=== PATIENT | female | born 1940 | race Caucasian/White ===

== ENCOUNTER 2019-01-26 19:39 | Emergency (ER) | payer MEDICARE, BC ==
[2019-01-26 20:13] LABS: ANION GAP 17.6; CHLORIDE,CL 100 mmol/L (101-111); SODIUM,NA 135 mmol/L (135-145)
--- NOTE | 2019-01-26 20:33 | EDM.PDOC ---
ED HPI GENERAL MEDICAL PROBLEM - General Chief Complaint: Trauma Stated Complaint: AMBULANCE Time Seen by Provider: 01/26/19 19:39 Source of Information: Reports: Patient, EMS, EMS Notes Reviewed, RN, RN Notes Reviewed History Limitations: Reports: No Limitations - History of Present Illness INITIAL COMMENTS - FREE TEXT/NARRATIVE: Pt to ER per [facility]. Trauma code called at 1937. GCS on arrival: 15. No Ccollar or spine board present upon arrival. Pt states she was walking and tripped falling on her face. Patient is bleeding from both nostrils upon arrival. Rhino rockets placed in the field by EMS have fallen out upon arrival. Denies LOC. Denies any health problems or taking any medications. Small abrasion on the bridge of her nose. Denies any pain. Onset: Today, Sudden - Related Data Allergies Allergy/AdvReac Type Severity Reaction Status Date / Time No Known Allergies Allergy Verified 05/09/15 06:17 Home Meds: Home Meds . [No Known Home Meds] 05/09/15 [History] Past Medical History - Past Health History Medical/Surgical History: Denies Medical/Surgical History Review of Systems - Review of Systems Review Of Systems: ROS reveals no pertinent complaints other than HPI. ED EXAM, GENERAL - Physical Exam Exam: See Below Exam Limited By: No Limitations General Appearance: Alert, WD/WN, No Apparent Distress Eye Exam: Bilateral Eye: EOMI, Normal Inspection Ears: Normal External Exam, Hearing Grossly Normal Nose: Nasal Tenderness, Nasal Deformity, Nasal Swelling, Nasal Drainage ( bleeding from both nares) Throat/Mouth: Normal Inspection, Normal Lips, Normal Teeth, Normal Gums, Normal Oropharynx, Normal Voice, No Airway Compromise Head: Facial Swelling, Facial Tenderness, Other (bruising beginning under the eyes bilaterally) Neck: Normal Inspection, Supple, Non-Tender, Full Range of Motion Respiratory/Chest: No Respiratory Distress, Lungs Clear, Normal Breath Sounds, No Accessory Muscle Use, Chest Non-Tender Cardiovascular: Normal Peripheral Pulses, Regular Rate, Rhythm, No Edema, No Gallop, No JVD, No Murmur, No Rub Peripheral Pulses: 2+: Radial (L), Radial (R) GI/Abdominal: Normal Bowel Sounds, Soft, Non-Tender (Female) Exam: Deferred Rectal (Female) Exam: Deferred Back Exam: Normal Inspection, Full Range of Motion Extremities: Normal Inspection, Normal Range of Motion, Non-Tender, Normal Capillary Refill, No Pedal Edema Neurological: Alert, Oriented, CN II-XII Intact, Normal Cognition, Normal Gait, Normal Reflexes, No Motor/Sensory Deficits Psychiatric: Normal Affect, Normal Mood Skin Exam: Ecchymosis (under eyes bilaterall), Other (small abrasion on the bridge of the nose) Lymphatic: No Adenopathy Course - Orders/Labs/Meds Labs: Laboratory Tests 01/26/19 01/26/19 01/26/19 Range/Units 19:47 19:47 19:47 WBC 8.3 (5.0-10.0) 10^3/uL RBC 4.26 (4.2-5.4) 10^6/uL Hgb 14.2 (12.0-16.0) g/dL Hct 41.5 (37.0-47.0) % MCV 97.4 (80-100) fL MCH 33.3 (27.0-34.0) pg MCHC 34.2 (33.0-35.0) g/dL Plt Count 212 (150-450) 10^3/uL Neut % (Auto) 45.9 (42.2-75.2) % Lymph % (Auto) 42.9 (20.5-50.1) % [place] % (Auto) 8.6 H (2-8) % Eos % (Auto) 1.9 (1.0-3.0) % Baso % (Auto) 0.7 (0.0-1.0) % PT 10.4 (9.0-12.0) SEC INR 1.0 (0.9-1.2) APTT 23.7 (22.0-34.0) SEC Sodium 135 (135-145) mmol/L Potassium 3.6 (3.6-5.0) mmol/L Chloride 100 L (101-111) mmol/L Carbon Dioxide 21.0 (21.0-31.0) mmol/L Anion Gap 17.6 BUN 9 (7-18) mg/dL Creatinine 0.6 (0.6-1.3) mg/dL Est Cr Clr Drug Dosing TNP Estimated GFR (MDRD) > 60 BUN/Creatinine Ratio 15.00 Glucose 148 H (74-105) mg/dL Calcium 9.0 (8.4-10.2) mg/dl Total Bilirubin 1.2 H (0.2-1.0) mg/dL AST 59 H (10-42) IU/L ALT 38 (10-60) IU/L Alkaline Phosphatase 97 (42-121) IU/L Total Protein 7.0 (6.7-8.2) g/dl Albumin 4.5 (3.2-5.5) g/dl Globulin 2.5 Albumin/Globulin Ratio 1.80 Ethyl Alcohol 194 mg/dL Meds: Medications Discontinued Medications Generic Name Dose Route Start Last Admin Trade Name Freq PRN Reason Stop Dose Admin Cephalexin 500 mg 01/26/19 21:22 Keflex PO 01/26/19 21:23 ONETIME ONE - Radiology Interpretation Free Text/Narrative:: Head CT: FINDINGS: Brain: There are changes of generalized atrophy and small vessel disease. Ventricles: Normal. No ventriculomegaly. Bones/joints: Multiple facial fractures. Sinuses: Air-fluid levels in the sinuses likely hemosinus. Mastoid air cells: Visualized mastoid air cells are unremarkable. No mastoid effusion. Soft tissues: Unremarkable. IMPRESSION: 1. There is no acute intracranial abnormality. 2. Multiple facial fractures. 3. Air-fluid levels in the sinuses likely hemosinus. Thank you for allowing us to participate in the care of your patient. Dictated and Authenticated by: Roni Bui MD 01/26/2019 8:20 PM Central Time ([place] & [place]) Cervical Spine CT: FINDINGS: Vertebrae: There is disc space narrowing, marginal osteophyte formation, facet arthropathy and uncovertebral spurring. Discs/Spinal canal/Neural foramina: No spinal stenosis. No neural foraminal narrowing. Soft tissues: Unremarkable. Lungs: Lung apices are normal. IMPRESSION: 1. No acute cervical spine process. 2. Degenerative disc disease. Thank you for allowing us to participate in the care of your patient. Dictated and Authenticated by: Roni Bui MD 01/26/2019 8:23 PM Central Time ([place] & [place]) Max/Facial CT: FINDINGS: Orbits: No acute intraorbital abnormality. Globes are unremarkable. Sinuses: Partial opacification of the paranasal sinuses with air-fluid levels consistent with hemosinus. Bones/joints: Comminuted nasal bone fractures. Nasal septum fractures. Left orbital floor fracture. Bilateral lamina papyracea fractures. Fractures of the anterior, medial and lateral garcia of the maxillary sinuses. Fracture involving the pterygoid process, medial and lateral pterygoid plates bilaterally. Soft tissues: Air in the facial soft tissues. IMPRESSION: 1. Multiple facial fractures as described above. 2. Partial opacification of the paranasal sinuses with air-fluid levels consistent with hemosinus. Thank you for allowing us to participate in the care of your patient. Dictated and Authenticated by: Roni Bui MD 01/26/2019 8:28 PM Central Time ([place] & [place]) See rad report - Re-Assessments/Exams Free Text/Narrative Re-Assessment/Exam: 01/27/19 01:34 Discussed Patient case with Dr. Choe, ENT at [facility]. He states his office will be in contact with the patient in the morning to set up follow up. Departure - Departure Time of Disposition: 22:01 Disposition: Home, Self-Care 01 Condition: Fair Clinical Impression: Fracture of orbit Qualifiers: Encounter type: initial encounter Fracture type: closed Qualified Code(s): S02.80XA - Fracture of other specified skull and facial bones, unspecified side , initial encounter for closed fracture Facial bones, closed fracture Qualifiers: Encounter type: initial encounter Facial bone/location: LeFort fracture LeFort fracture type: LeFort III Qualified Code(s): S02.413A - LeFort III fracture, initial encounter for closed fracture - Discharge Information *PRESCRIPTION DRUG MONITORING PROGRAM REVIEWED*: No *COPY OF PRESCRIPTION DRUG MONITORING REPORT IN PATIENT MARK: No Instructions: Orbital Floor Fracture With Entrapment, Nasal Fracture, Easy-to- Read Referrals: PCP,None [Primary Care Provider] - Forms: ED Department Discharge Additional Instructions: Call [facility] ENT clinic [phone], ask for the Ear, Nose, and Throat clinic Dr. Choe will be seeing the patient RX: Keflex DO NOT BLOW YOUR NOSE Follow up with ENT
[2019-01-26] MEDS ORDERED: Cephalexin 500 MG Cap PO ONE (21:22)
== END 2019-01-26 22:01 | disposition home or self-care (01) ==
LOC: DL.ED 19:39
DX: S02.412A LeFort II fracture, initial encounter for closed fracture (principal); S02.80XA Fracture of other specified skull and facial bones, unspecified side, initial encounter for closed fracture; S00.83XA Contusion of other part of head, initial encounter; S00.31XA Abrasion of nose, initial encounter; R78.0 Finding of alcohol in blood; W01.198A Fall on same level from slipping, tripping and stumbling with subsequent striking against other object, initial encounter; Y90.6 Blood alcohol level of 120-199 mg/100 ml
CPT/HCPCS: 36415; 70450; 70486; 72125; 80053; 85025; 85610; 85730; 99285; G0480

== ENCOUNTER 2025-04-03 12:11 | Emergency (ER) | payer MEDICARE, BC ==
[2025-04-03 12:26] VITALS: BP 107/49; PULSE 82
[2025-04-03 12:48] LABS: BASOPHILS PERCENT AUTO 0.4 % (0.0-1.0); EOSINOPHILS PERCENT AUTO 0.3 % (1.0-3.0); HEMATOCRIT 38.4 % (37.0-47.0); HEMOGLOBIN 13.1 g/dL (12.0-16.0); LYMPHOCYTES PERCENT AUTO 12.9 % (20.5-50.1); MEAN CORPUSCULAR HEMOGLOBIN 33.4 pg (27.0-34.0); MEAN CORPUSCULAR HGB CONC 34.1 g/dL (33.0-35.0); MONOCYTES PERCENT AUTO 9.1 % (2-8); NEUTROPHILS PERCENT AUTO 77.3 % (42.2-75.2); PLATELET COUNT,PLT 164 10^3/uL (150-450); RED BLOOD CELL COUNT 3.92 10^6/uL (4.2-5.4); WHITE BLOOD CELL COUNT,WBC 7.6 10^3/uL (5.0-10.0)
[2025-04-03 13:04] LABS: A/G RATIO 1.7; ALANINE AMINOTRANSFERASE,ALT 26 U/L (14-59); ALKALINE PHOSPHATASE 79 U/L (46-116); ASPARTATE AMNIOTRANSFERASE,AST 23 U/L (15-37); BILIRUBIN TOTAL 0.7 mg/dL (0.2-1.0); BLOOD UREA NITROGEN,BUN 11 mg/dL (7-18); BUN/CREATININE RATIO 16.9 (No establ ref range); CALCIUM 8.8 mg/dL (8.5-10.1); CARBON DIOXIDE,CO2 21 mmol/L (21-32); CHLORIDE,CL 100 mmol/L (98-107); CREATININE 0.65 mg/dL (0.55-1.02); ESTIMATED GFR 87 mL/min (>=60); GLUCOSE RANDOM 104 mg/dL (70-99); MAGNESIUM 1.8 mg/dL (1.8-2.4); PROTEIN TOTAL,TP 6.4 g/dL (6.4-8.2); SODIUM,NA 135 mmol/L (136-145)
[2025-04-03] MEDS: Ibuprofen 400 MG Tab PO ONE (13:17)
== END 2025-04-03 13:47 | disposition home or self-care (01) ==
LOC: DL.ED 12:11
DX: M79.661 Pain in right lower leg (principal)
CPT/HCPCS: 36415; 73590; 80053; 83735; 85025; 99283; A9270